=== PATIENT | male | born 1950 | race Caucasian/White ===

== ENCOUNTER → 2019-06-13 | Outpatient (CLI) | payer MEDICARE, OTHER ==
--- NOTE | 2019-06-13 09:33 | REP ---
MRI RIGHT SHOULDER: TECHNIQUE: Axial T2 fat sat, gradient echo, sagittal oblique T2 fat sat, coronal oblique T1, T2 fat sat. There is a complete full thickness tear of the supraspinatus tendon with approximately 4 cm of retraction. There appears to be a partial tear of the subscapularis. Moderate hypertrophic degenerative changes are seen of the acromioclavicular joint with a type II acromion. Biceps tendon is torn and retracted into the inferior bicipital groove. There is no Hill-Sachs deformity. The deltoid muscle demonstrates no abnormal signal. There is diffuse SLAP tear. There also appears to be a tear of the inferior labrum. There is a tear of the posterior labrum. Anterior labrum is diffusely frayed. At the superior posterior aspect of the labrum a paralabral cyst is seen extending medially with a lobulated somewhat tubular shape, extending along the superior aspect of the bony glenoid. Maximum craniocaudal dimension is 1.2 cm, AP dimension 1.7 cm and transverse 2.8 cm. Mild subchondral marrow edema is seen in the bony glenoid posteriorly. 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 There is mild fluid in the subacromial bursa. IMPRESSION: Complete full thickness tear of the supraspinatus tendon with retraction of the musculotendinous junction approximately 4 cm. There appears to be a partial tear of the subscapularis. There are moderate hypertrophic degenerative changes of the acromioclavicular joint with a type II acromion. Biceps tendon is torn and appears retracted inferiorly in the bicipital groove. There is diffuse SLAP tear as well as a tear of the inferior labrum and posterior labrum. There is diffuse fraying of the anterior labrum. Tubular paralabral cyst superiorly. 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 Electronically Signed by Efren Cantu MD 06/13/2019 02:39 P
== END ==
LOC: M RAD 07:19
DX: M25.511 Pain in right shoulder (principal)